=== PATIENT | male | born 1960 | race Caucasian/White ===

== ENCOUNTER → 2021-06-26 12:47 | Outpatient (BNVA) | payer BC, SELFPAY | PROVIDERS: PCP Internal Medicine; Visit Provider Psychiatry & Neurology Neurology | DX: Z13.89 Encounter for screening for other disorder (principal) ==

== ENCOUNTER → 2022-05-27 11:58 | Outpatient (BNVA) | payer BC, SELFPAY | PROVIDERS: PCP Internal Medicine; Visit Provider Psychiatry & Neurology Neurology | DX: Z13.89 Encounter for screening for other disorder (principal) ==

== ENCOUNTER 2022-10-02 07:30 | Outpatient (AMB) | payer BC, SELFPAY ==
[2022-10-02 07:35] VITALS: BP 134/86; PULSE 74; O2SAT 99; BMI 37.9
--- NOTE | 2022-10-02 07:35 | A.OFFVIS_ITS ---
Intake Vital Signs 10/02/22 07:35 Height 6 ft Weight 279 lb 2 oz BMI 37.9 BP 134/86 Blood Pressure Location Rt brachial Position Sitting Pulse 74 Pulse Source Pulse Oximeter Pulse Oximetry (%) 99 Oxygen Delivery Method Room Air Intake Visit Reasons: follow up Intake Note: Pt presents as a f/u. 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 Accompanied by: Spouse Allergies No Known Allergies Allergy (Verified 10/02/22 07:41) Medication List - Last Reconciled 10/02/22 by Reina Nunes MD aspirin (Adult Low Dose Aspirin) 81 mg PO DAILY atorvastatin (Lipitor) 20 mg PO BEDTIME carbidopa-levodopa 25-100 mg (Sinemet) 6 tabs PO DAILY clonazepam 0.5 mg PO BEDTIME dulaglutide (Trulicity) 1.5 mg subcut QWEEK insulin glargine (Lantus Solostar U-100 Insulin) 80 units subcut DAILY insulin lispro (Humalog KwikPen U-200 Insulin) 1 sliding scale dose subcut USEASDIRECTD metformin 850 mg PO TID olmesartan (Benicar) 20 mg PO DAILY pen needle, diabetic (BD Concepcion 2nd Gen Pen Needle) As directed ropinirole 1 mg PO QID 90 days HPI HPI Comments History of Present Illness Details 62y/o male calls for follow up of parkinsons disease ( tremor predominant) , REM behavior disorder and obstructive sleep apnea. His parkinsons is stable. His diabetes is well controlled - his Hg A1C was 6.6 . The tremors does not affect his ADLs but can be socially embarrassing. He denies memory issues, hallucinations, mood disturbance, change in speech , swallowing, denies falls. He reports increase in tremors, drooling etc His REM behavior episode is well controlled. No breakthrough episodes He uses his CPAP regularly. He hurt his back L4-5 bulging disc. [facility] Medical History Back pain Diabetes GERD (gastroesophageal reflux disease) HTN (hypertension) Hyperlipidemia Obstructive sleep apnea Parkinson's disease Surgical History History of hernia surgery Social History Alcohol intake: never Patient Tobacco Use Status: Former Tobacco user Use of substances other than those prescribed or required for medical reasons: No Physical Exam Vital Signs: Last Vital Signs Pulse 74 10/02/22 07:35 BP 134/86 10/02/22 07:35 Pulse Ox 99 10/02/22 07:35 Oxygen Delivery Method Room Air 10/02/22 07:35 BMI result Body Mass Index 37.9 Const General: cooperative, healthy appearing, comfortable and no acute distress Nutritional Appearance: overweight Orientation/consciousness: patient oriented x3 Neuro Other: Moderately decreased blink and facial expression Left UE and LE high amplitude tremors- intermittent Tone - normal Fine finger movements and foot taps normal Gait - mild stoop and decreased arm swing on left General: patient oriented x3 Assessment & Plan Assessment & Plan (1) Parkinson's disease: Code(s): G20 - Parkinson's disease (2) Obstructive sleep apnea: Code(s): G47.33 - Obstructive sleep apnea (adult) (pediatric) (3) REM behavioral disorder: Code(s): G47.52 - REM sleep behavior disorder Plan Continue sinemet 25/100 1.5tabs qid and take extra 1 tab as needed for tremors clonazepam 0.5mg qhs - monitor RBD ropinirole 1mg qid Continue CPAP compliance stressed Patient interested in DBS - will schedule for pre and post UPDRS PT - BIG program Orders: Orders PT Evaluation and Treatment Today G20 - Parkinson's disease Coding Level of Care Code Est Pt Level 5 (08699) Diagnoses Parkinson's disease G20 Obstructive sleep apnea G47.33 REM behavioral disorder G47.52 Time Spent (min) 45
== END 2022-10-02 08:16 | disposition home or self-care (01) ==
PROVIDERS: Visit Provider Psychiatry & Neurology Neurology
DX: G20 Parkinson's disease (principal); G47.33 Obstructive sleep apnea (adult) (pediatric); G47.52 REM sleep behavior disorder
CPT/HCPCS: 99215

== ENCOUNTER → 2022-10-02 07:30 | Outpatient (BNVA) | payer BC, SELFPAY | PROVIDERS: Visit Provider Psychiatry & Neurology Neurology ==

== ENCOUNTER 2022-10-07 07:24 | Outpatient (AMB) | payer BC, SELFPAY ==
--- NOTE | 2022-10-07 07:37 | A.OFFVIS_ITS ---
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 His parkinsons is stable. His diabetes is well controlled - his Hg A1C was 6.6 . The tremors does affect his ADLs and can be socially embarrassing. He denies memory issues, hallucinations, mood disturbance, change in speech , swallowing, denies falls. He reports increase in tremors, drooling etc His REM behavior episode is well controlled. No breakthrough episodes He uses his CPAP regularly. He hurt his back L4-5 bulging disc. He is interested in DBS an dis here for premedication and post medictaion evaluation UPDRS- 2 premedication COUNTS INCLUDE 234 BEDS AT [facility] Medical History Back pain Diabetes GERD (gastroesophageal reflux disease) HTN (hypertension) Hyperlipidemia Obstructive sleep apnea Parkinson's disease Surgical History History of hernia surgery Social History Alcohol intake: never Patient Tobacco Use Status: Former Tobacco user Physical Exam Vital Signs: Last Vital Signs Pulse 78 10/07/22 07:39 BP 102/72 10/07/22 07:39 Pulse Ox 99 10/07/22 07:39 Oxygen Delivery Method Room Air 10/07/22 07:39 Neuro Other: UPDRS - 3 Premedication Post medication Speech 1-Slight loss of expression,diction or volume 2.Monotone,slurred but understandable,moderately impaired Facial expression 1-Minimal hypomimia, poker face 3-Moderate hypomimia,lips parted some of the time Rest Tremors( head, Upper, lower ) 3-Moderate in amplitude and present most of the time 4-Marked amplitude and present most of the time- left UE and LE Action and Postural tremors 1-Slight with action 3-Moderate with posture and action- left UE and LE Rigidity 1-Slight or detectable only when activated by mirror movements 2-Mild to Moderate Finger Taps 1-Mild slowing and or reduction in amplitude 2-Moderately impaired. Early fatiguing and occasional arrests in movement Hand movements 1-mild slowing and or reduction in amplitude 2-Moderately impaired.Definite and early fatiguing, may have occasional arrests in movement. Rapid Alternating Movements of Hands 1-Mild slowing and or reduction in amplitude 2-Moderately impaired. Definite and early fatiguing. May have occasional arrests in movement. Leg agility 1-mild slowing and reduction in amplitude 2-moderately impaired.Definite and early fatiguing , may have occasional arrest in movement. Arising from a chair 0-Normal 1-Slow or may need more than 1 attempt Posture 0-normal 1-slightly stooped, could be normal for an older person Gait 1-walks slowly,may shuffle with short steps, but no festination or propulsion Postural stability 1-retropulsion but recovers unaided Body bradykinesia and hypokinesia 1-minimal slowness,giving movement a deliberate character,could be normal for s ome persons.Possible reduced amplitude 2-Mild degree of slowness and poverty of movement or some reduced amplitude Premed- 28 Post med-15 Assessment & Plan Assessment & Plan (1) Parkinson's disease: Code(s): G20 - Parkinson's disease (2) Obstructive sleep apnea: Code(s): G47.33 - Obstructive sleep apnea (adult) (pediatric) (3) REM behavioral disorder: Code(s): G47.52 - REM sleep behavior disorder Plan I will refer her to Dr. Ata Espinal ( [facility]) for DBS eval . Continue sinemet 25/100 1.5tabs qid and take extra 1 tab as needed for tremors clonazepam 0.5mg qhs - monitor RBD ropinirole 1mg qid Continue CPAP compliance stressed PT - BIG program Coding Level of Care Code Est Pt Level 4 (38187) Diagnoses Parkinson's disease G20 Obstructive sleep apnea G47.33 REM behavioral disorder G47.52
[2022-10-07 07:39] VITALS: BP 102/72; PULSE 78; O2SAT 99
== END 2022-10-07 07:57 | disposition home or self-care (01) ==
PROVIDERS: PCP Internal Medicine; Visit Provider Psychiatry & Neurology Neurology
DX: G20 Parkinson's disease (principal); G47.33 Obstructive sleep apnea (adult) (pediatric); G47.52 REM sleep behavior disorder
CPT/HCPCS: 99214

== ENCOUNTER → 2022-10-07 07:24 | Outpatient (BNVA) | payer BC, SELFPAY | PROVIDERS: PCP Internal Medicine; Visit Provider Psychiatry & Neurology Neurology | DX: G20 Parkinson's disease (principal) ==

== ENCOUNTER 2023-01-12 07:47 | Outpatient (AMB) | payer BC, SELFPAY ==
--- NOTE | 2023-01-12 08:06 | MHC.OFFVIS ---
Intake Vital Signs 01/12/23 08:07 Height 6 ft Weight 283 lb 8 oz BMI 38.4 BP 122/78 Blood Pressure Location Lt brachial Position Sitting Respiration 16 Pulse 83 Pulse Source Pulse Oximeter Pulse Oximetry (%) 99 Oxygen Delivery Method Room Air Intake Visit Reasons: 3m follow up-CONFIRMED Intake Note: Pt presents to the office for follow up for DAYANA. He states he feels its getting worse. Tremors are worse on the left than the right. Allergies No Known Allergies Allergy (Verified 01/12/23 08:07) HPI HPI Comments History of Present Illness Details 62y/o male calls for follow up of parkinsons disease ( tremor predominant) , REM behavior disorder and obstructive sleep apnea. His parkinsons is stable. His diabetes is well controlled - his Hg A1C was 6.6 . He is scheduled to see Movement Disorder specialist - for DBS The tremors does affect his ADLs and can be socially embarrassing. He denies memory issues, hallucinations, mood disturbance, change in speech , swallowing, denies falls. He reports increase in tremors, drooling etc His REM behavior episode is well controlled. No breakthrough episodes He uses his CPAP regularly. He hurt his back L4-5 bulging disc. [facility] Medical History Hyperlipidemia Back pain GERD (gastroesophageal reflux disease) Parkinson's disease Obstructive sleep apnea Diabetes HTN (hypertension) Surgical History History of hernia surgery Social History Alcohol intake: never Patient Tobacco Use Status: Former Tobacco user Physical Exam Vital Signs: Last Vital Signs Pulse 83 01/12/23 08:07 Resp 16 01/12/23 08:07 BP 122/78 01/12/23 08:07 Pulse Ox 99 01/12/23 08:07 Oxygen Delivery Method Room Air 01/12/23 08:07 BMI result Body Mass Index 38.4 Const General: cooperative, healthy appearing, comfortable and no acute distress Nutritional Appearance: overweight Orientation/consciousness: patient oriented x3 Neuro Other: Moderately decreased blink and facial expression Left UE and LE high amplitude tremors- intermittent Tone - normal Fine finger movements and foot taps normal Gait - mild stoop and decreased arm swing on left General: patient oriented x3 Assessment & Plan Assessment & Plan (1) Parkinson's disease: Code(s): G20 - Parkinson's disease (2) Obstructive sleep apnea: Code(s): G47.33 - Obstructive sleep apnea (adult) (pediatric) (3) REM behavioral disorder: Code(s): G47.52 - REM sleep behavior disorder Plan Continue sinemet 25/100 1.5tabs qid and take extra 1 tab as needed for tremors clonazepam 0.5mg qhs - monitor RBD ropinirole 1mg qid Continue CPAP compliance stressed PT - modified BIG program Coding Level of Care Code Est Pt Level 4 (96288) Diagnoses Parkinson's disease G20 Obstructive sleep apnea G47.33 REM behavioral disorder G47.52
[2023-01-12 08:07] VITALS: BP 122/78; PULSE 83; RESP 16; O2SAT 99; BMI 38.4
== END 2023-01-12 08:25 | disposition home or self-care (01) ==
PROVIDERS: PCP Internal Medicine; Visit Provider Psychiatry & Neurology Neurology
DX: G20.A1 Parkinson's disease without dyskinesia, without mention of fluctuations (principal); G47.33 Obstructive sleep apnea (adult) (pediatric); G47.52 REM sleep behavior disorder
CPT/HCPCS: 99214

== ENCOUNTER → 2023-01-12 07:47 | Outpatient (BNVA) | payer BC, SELFPAY | PROVIDERS: PCP Internal Medicine; Visit Provider Psychiatry & Neurology Neurology ==

== ENCOUNTER 2023-06-08 07:31 | Outpatient (AMB) | payer BC, SELFPAY ==
--- NOTE | 2023-06-08 07:34 | MHC.OFFVIS ---
Intake Vital Signs 06/08/23 07:36 Height 6 ft Weight 280 lb BMI 38.0 BP 132/78 Blood Pressure Location Rt brachial Position Sitting Respiration 16 Pulse 76 Pulse Source Palpation Intake Visit Reasons: 5 mnts f/u appt-LVM Intake Note: Pt presents for 5 month follow up for DAYANA. 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 Allergies No Known Allergies Allergy (Verified 06/08/23 07:35) Medication List - Last Reconciled 06/08/23 by Reina Nunes MD aspirin (Adult Low Dose Aspirin) 81 mg PO DAILY atorvastatin (Lipitor) 20 mg PO BEDTIME carbidopa-levodopa 61.25-245 mg ER (Rytary) 1 cap PO QID clonazepam 0.5 mg PO BEDTIME dulaglutide (Trulicity) 1.5 mg subcut QWEEK insulin glargine (Lantus Solostar U-100 Insulin) 80 units subcut DAILY insulin lispro (Humalog KwikPen U-200 Insulin) 1 sliding scale dose subcut USEASDIRECTD metformin 850 mg PO TID olmesartan (Benicar) 20 mg PO DAILY pen needle, diabetic (BD Concepcion 2nd Gen Pen Needle) As directed ropinirole 1 mg PO QID 90 days HPI HPI Comments History of Present Illness Details 63y/o male calls for follow up of obstructive sleep apnea. His parkinsons is stable and is following up at movement Disorders Clinic at [facility] [place] His sinemet was switched to rytary and he feels he is better. He uses his CPAP regularly. He hurt his back L4-5 bulging disc. [facility] Medical History Hyperlipidemia Back pain GERD (gastroesophageal reflux disease) Parkinson's disease Obstructive sleep apnea Diabetes HTN (hypertension) Surgical History History of hernia surgery Social History Alcohol intake: never Patient Tobacco Use Status: Former Tobacco user Physical Exam Vital Signs: Last Vital Signs Pulse 76 06/08/23 07:36 Resp 16 06/08/23 07:36 BP 132/78 06/08/23 07:36 BMI result Body Mass Index 38.0 Const General: cooperative, healthy appearing, comfortable and no acute distress Nutritional Appearance: overweight Orientation/consciousness: patient oriented x3 Neuro Other: Moderately decreased blink and facial expression Left UE and LE high amplitude tremors- intermittent Tone - normal Fine finger movements and foot taps normal Gait - mild stoop and decreased arm swing on left General: patient oriented x3 Assessment & Plan Assessment & Plan (1) Obstructive sleep apnea: Code(s): G47.33 - Obstructive sleep apnea (adult) (pediatric) (2) REM behavioral disorder: Code(s): G47.52 - REM sleep behavior disorder Plan Continue Rytary 61/245 1 tab qid clonazepam 0.5mg qhs - monitor RBD ropinirole 1mg qid Continue CPAP compliance stressed F/u [facility] [place] movement disorders clinic Coding Level of Care Code Est Pt Level 4 (98330) Diagnoses Obstructive sleep apnea G47.33 REM behavioral disorder G47.52
[2023-06-08 07:36] VITALS: BP 132/78; PULSE 76; RESP 16; BMI 38.0
== END 2023-06-08 08:02 | disposition home or self-care (01) ==
PROVIDERS: PCP Internal Medicine; Visit Provider Psychiatry & Neurology Neurology
DX: G47.33 Obstructive sleep apnea (adult) (pediatric) (principal); G47.52 REM sleep behavior disorder
CPT/HCPCS: 99214

== ENCOUNTER → 2023-06-08 07:31 | Outpatient (BNVA) | payer BC, SELFPAY | PROVIDERS: PCP Internal Medicine; Visit Provider Psychiatry & Neurology Neurology ==

== ENCOUNTER 2024-06-06 07:42 | Outpatient (AMB) | payer BC, SELFPAY ==
--- NOTE | 2024-06-06 07:49 | A.OFFVIS_ITS ---
Vital Signs 06/06/24 07:53 Height 6 ft Weight 297 lb BMI 40.3 BP 146/78 H Blood Pressure Location Rt brachial Position Sitting Pulse 72 Pulse Source Pulse Oximeter Pulse Oximetry (%) 100 Oxygen Delivery Method Room Air Intake Visit Reasons: 1 yr Follow Up Intake Note: Patient presents for 1 year follow up Allergies No Known Allergies Allergy (Verified 06/06/24 07:52) HPI Comments Details: 64y/o male calls for follow up of obstructive sleep apnea.He is doing well with CPAP. 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 He has new CPAP since Jan 2024. He sleeps well at night , daytime functioning has improved significantly. His parkinsons is stable and is following up at [facility] Disorders [facility] [place] [facility] His sinemet was switched to rytary and he feels he is better. he has RBD and is on clonazepam 0.5mg qhs - but still has frequent episodes atleast 2 times a week. He hurt his back L4-5 bulging disc. [facility] Medical History Hyperlipidemia Back pain GERD (gastroesophageal reflux disease) Parkinson's disease Obstructive sleep apnea Diabetes HTN (hypertension) Surgical History S/P deep brain stimulator placement History of hernia surgery Social History Alcohol intake: never Patient Tobacco Use Status: Former Tobacco user Physical Exam Vital Signs: Last Vital Signs Pulse 72 06/06/24 07:53 BP 146/78 H 06/06/24 07:53 Pulse Ox 100 06/06/24 07:53 Oxygen Delivery Method Room Air 06/06/24 07:53 BMI result Body Mass Index 40.3 Const General: cooperative, healthy appearing, comfortable and no acute distress Nutritional Appearance: overweight Orientation/consciousness: patient oriented x3 Neuro Other: Moderately decreased blink and facial expression Fine finger movements and foot taps normal Gait - mild stoop and decreased arm swing on left General: patient oriented x3 Assessment & Plan Assessment & Plan (1) Obstructive sleep apnea: Code(s): G47.33 - Obstructive sleep apnea (adult) (pediatric) Category: Medical (2) REM behavioral disorder: Code(s): G47.52 - REM sleep behavior disorder Category: Medical Plan Continue Rytary 61/245 1 tab qid Increase clonazepam 0.5mg 1 1/2 tab qhs - monitor RBD- still has episodes of acting out ropinirole 1mg qid Continue CPAP compliance stressed F/u [facility] [place] Coding Level of Care Code Est Pt Level 4 (90164) Complex EM visit Add On G2211 Diagnoses Obstructive sleep apnea G47.33 REM behavioral disorder G47.52
[2024-06-06 07:53] VITALS: BP 146/78; PULSE 72; O2SAT 100; BMI 40.3
== END 2024-06-06 08:18 | disposition home or self-care (01) ==
LOC: HO.HSMS 07:42
PROVIDERS: PCP Internal Medicine; Visit Provider Psychiatry & Neurology Neurology
DX: G47.33 Obstructive sleep apnea (adult) (pediatric) (principal); G47.52 REM sleep behavior disorder
CPT/HCPCS: 99214